=== PATIENT | female | born 1985 | race American Indian/Alaskan Native ===

== ENCOUNTER 2018-12-16 14:55 | Outpatient (CLI) | payer MEDICAID, OTHER ==
[2018-12-16 15:16] VITALS: BP 105/69
[2018-12-16] MEDS ORDERED: LACTATED RINGERS 500 ML IV ONE (15:51)
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
== END 2018-12-16 19:38 | disposition home or self-care (01) ==
LOC: TRG 14:55
PROVIDERS: ATTEND Obstetrics & Gynecology
DX: O47.03 False labor before 37 completed weeks of gestation, third trimester (principal); O9A.213 Injury, poisoning and certain other consequences of external causes complicating pregnancy, third trimester; Z3A.31 31 weeks gestation of pregnancy; X58.XXXA Exposure to other specified factors, initial encounter; Y93.89 Activity, other specified; Y92.89 Other specified places as the place of occurrence of the external cause; Y99.8 Other external cause status
CPT/HCPCS: 59025; 76815

== ENCOUNTER 2019-01-26 12:29 | Outpatient (CLI) | payer MEDICAID ==
[2019-01-26] MEDS ORDERED: LACTATED RINGERS 500 ML IV ONE (13:13)
[2019-01-26 13:27] VITALS: BP 112/70
[2019-01-26 13:40] LABS: Bilirubin,Urine NEG (Negative); Blood,Urine NEG (Negative); Calcium Oxalate Crystals,Urine FEW; Mucus,Urine 3+ /HPF
[2019-01-26 13:43] LABS: Color,Urine Yellow (Yellow)
== END 2019-01-26 15:18 | disposition home or self-care (01) ==
LOC: TRG 12:29
PROVIDERS: ATTEND Obstetrics & Gynecology
DX: O47.03 False labor before 37 completed weeks of gestation, third trimester (principal); Z3A.37 37 weeks gestation of pregnancy
CPT/HCPCS: 81001

== ENCOUNTER 2019-02-14 05:49 | Inpatient (IN) | payer MEDICAID ==
[2019-02-14] MEDS ORDERED: LACTATED RINGERS 1,000 ML ONE (05:59)
[2019-02-14] MEDS ORDERED: BRETHINE IVP PRN (06:10)
[2019-02-14] MEDS ORDERED: MINERAL OIL PO PRN (06:10)
[2019-02-14] MEDS ORDERED: BRETHINE SUB-Q PRN (06:10)
[2019-02-14] MEDS ORDERED: SUBLIMAZE IV PRN (06:10)
[2019-02-14] MEDS ORDERED: XYLOCAINE 2% INFILTRATI ONE (06:10)
[2019-02-14] MEDS ORDERED: AMPICILLIN/NS 2 GM/100 ML 2 GM/100 ML BAG IV ONE ×2 (06:10→06:15)
[2019-02-14] MEDS: LACTATED RINGERS 1,000 ML IV SCH ×2 (06:10→06:41)
[2019-02-14] MEDS ORDERED: PITOCin/NS 20 UNIT/1000ML DRIP 20 UNITS/1,000 ML BAG IV SCH ×2 (07:00→08:30)
[2019-02-14] MEDS ORDERED: PITOCin/NS 30 UNIT/500ML 30 UNITS/500 ML BAG IV SCH (07:00)
[2019-02-14 07:20] LABS: Hematocrit 31.1 % (30.3-42.9); Hemoglobin 10.8 gm/dl (10.1-14.3); Mean Corpuscular HGB Conc 35 % (30-34); Mean Corpuscular Volume 94 fl (79-97); Platelet Count 207 K/mm3 (140-440); Red Blood Count 3.32 M/mm3 (3.65-5.03); Red Cell Distribution Width 13.1 % (13.2-15.2)
--- NOTE | 2019-02-14 08:10 | History and Physical Report ---
History of Present Illness Date of examination: 02/14/19 Date of admission: 02/14/19 06:05 Chief complaint: contractions History of present illness: This is a 33yo EDC 02/16/19 at 39+5 weeks admitted to labor and delivery for active labor. She is a patient of [facility]. She has a hx of obesity and UTI treated in this . Past History Past Medical History: no pertinent history Past Surgical History: no surgical history CERTIFIED SUBSTANCE ABUSE COUNSELOR History: trichomonas Family/Genetic History: hypertension, cancer, other (depression) Social history: single. denies: smoking, alcohol abuse, prescription drug abuse - Obstetrical History Expected Date of Delivery: 02/16/19 Actual Gestation: 39 Week(s) 5 Day(s) : 2 Para: 1 Hx # Term Pregnancies: 1 Number of Pregnancies: 0 Spontaneous Abortions: 0 Induced : 0 Number of Living Children: 1 Medications and Allergies Allergies Allergy/AdvReac Type Severity Reaction Status Date / Time No Known Allergies Allergy Verified 01/26/19 13:13 Home Medications Medication Instructions Recorded Confirmed Last Taken Type Ondansetron [Zofran Odt] 4 mg PO TID #6 tab.rapdis 05/11/15 Unknown Rx Ferrous Sulfate [Feosol 325 MG tab] 325 mg PO BID #30 tablet 02/14/19 Unknown Rx Ibuprofen [Motrin] 600 mg PO Q8H PRN #30 tablet 02/14/19 Unknown Rx oxyCODONE /ACETAMINOPHEN [Percocet 1 tab PO Q6HR PRN #30 tablet 02/14/19 Unknown Rx 5/325] Active Meds: Active Medications Acetaminophen (Tylenol) 650 mg PO Q4H PRN PRN Reason: Pain MILD(1-3)/Fever >100.5/CHASE Acetaminophen/Hydrocodone Bitart ([place] 5/325) 2 each PO Q6H PRN PRN Reason: Pain, Moderate (4-6) Bisacodyl (Dulcolax) 10 mg OR BID PRN PRN Reason: Constipation Diphenhydramine HCl (Benadryl) 25 mg PO Q6H PRN PRN Reason: Itching Diphtheria/Tetanus/Acell Pertussis (Boostrix) 0.5 ml IM .ONCE ONE Stop: 02/15/19 07:59 Docusate Sodium (Colace) 100 mg PO BID ROBERTA Ephedrine Sulfate (Ephedrine Sulfate) 10 mg IV Q2M PRN PRN Reason: Hypotension Fentanyl (Sublimaze) 100 mcg IV Q2H PRN PRN Reason: Labor Pain Last Admin: 02/14/19 06:17 Dose: 100 mcg Documented by: Oxytocin/Sodium Chloride (Pitocin/Ns 20 Unit/1000ml Drip) 20 units in 1,000 mls @ 125 mls/hr IV DIRECT ROBERTA Oxytocin/Sodium Chloride (Pitocin/Ns 30 Unit/500ml) 30 units in 500 mls @ 1 mls/hr IV TITR ROBERTA; Protocol Lactated Ringer's (Lactated Ringers) 1,000 mls @ 125 mls/hr IV DIRECT ROBERTA Last Admin: 02/14/19 06:41 Dose: 125 mls/hr Documented by: Oxytocin/Sodium Chloride (Pitocin/Ns 20 Unit/1000ml Drip) 20 units in 1,000 mls @ 250 mls/hr IV DIRECT ROBERTA Ibuprofen (Ibuprofen) 600 mg PO Q6H ROBERTA Ketorolac Tromethamine (Toradol) 30 mg IV Q6H PRN PRN Reason: Pain, Moderate (4-6) Stop: 02/19/19 07:57 Magnesium Hydroxide (Milk Of Magnesia) 30 ml PO HS PRN PRN Reason: Constipation Measles/Mumps/Rubella Vaccine Live (M-M-R Ii Vaccine) 0.5 ml SUB-Q .ONCE ONE Stop: 02/15/19 07:59 Mineral Oil (Mineral Oil) 30 ml PO QHS PRN PRN Reason: Constipation Multi-Ingredient Ointment (Lansinoh) 1 applic TP PRN PRN PRN Reason: Sore Nipples Multivitamins/Iron/Calcium ( Vitamin) 1 each PO QDAY ROBERTA Ondansetron HCl (Zofran) 4 mg IV Q8H PRN PRN Reason: Nausea And Vomiting Oxycodone/Acetaminophen (Percocet 5/325) 1 tab PO Q6H PRN PRN Reason: Pain, Moderate (4-6) Promethazine HCl (Phenergan) 25 mg OR Q6H PRN PRN Reason: Nausea And Vomiting Promethazine HCl (Phenergan) 25 mg PO Q6H PRN PRN Reason: Nausea And Vomiting Sodium Chloride (Sodium Chloride Flush Syringe 10 Ml) 10 ml IV PRN NR Terbutaline Sulfate (Brethine) 0.25 mg SUB-Q ONCE PRN PRN Reason: Hyperstimulation/Hypertonicity Terbutaline Sulfate (Brethine) 0.25 mg IVP ONCE PRN PRN Reason: Hyperstimulation/Hypertonicity Witch Maira/Glycerin (Tucks Pad) 1 each TP PRN PRN PRN Reason: Hemorrhoid/cleansing/soothing Review of Systems All systems: negative - Vital Signs Vital signs: Vital Signs Pulse BP 90 140/93 02/14/19 06:05 02/14/19 06:05 Temp Pulse Resp BP Pulse Ox 85 115/64 02/14/19 07:49 02/14/19 07:49 - Physical Exam Breasts: Positive: normal Cardiovascular: Regular rate, Normal S1 Lungs: Positive: Clear to auscultation, Normal air movement Abdomen: Positive: normal appearance, soft, normal bowel sounds. Negative: distention, tenderness, guarding Genitourinary (Female): Positive: normal external genitalia, normal perenium Vulva: both: normal Vagina: Positive: normal moisture Uterus: Positive: normal size, normal contour Anus/Rectum: Positive: normal perianal skin Extremities: Positive: normal Deep Tendon Reflex Grade: Normal +2 - Obstetrical FHR: category 1 Cervical Dilatation: 8 Uterine Contraction Pattern: Regular Uterine Tone Measurement Phase: Contraction Uterine Contraction Intensity: Strong/Firm Results Result Diagrams: 02/14/19 07:08 Abnormal lab results 02/14/19 Range/Units 07:08 WBC 13.6 H (4.5-11.0) K/mm3 RBC 3.32 L (3.65-5.03) M/mm3 MCHC 35 H (30-34) % RDW 13.1 L (13.2-15.2) % All other labs normal. Assessment and Plan A/P IUP 39+5 weeks active labor expect vaginal delivery
--- NOTE | 2019-02-14 08:20 | Procedure Note ---
OB Delivery Note - Delivery Date of Delivery: 02/14/19 Surgeon: BEVERLY RUIZ Estimated blood loss: 300cc - Vaginal Delivery presentation: vertex Delivery position: OA Intrapartum events: precipitous labor- <3hr Delivery induction: none Delivery monitor: external FHT, external uterine Route of delivery: Delivery placenta: spontaneous Delivery cord: 3 umbilical vessels Episiotomy: none Delivery laceration: none Anesthesia: none Delivery comments: Patient noted to be C/C/+2 and commenced to pushing a viable male infant at 746a. The baby placed on mom chest and cord was clamped and cut. the placneta delivered intact with three vessel cord at . Weight of the baby 8 pounds 3 oz. no laceration. Precipitous delivery attended by Teenage Babysitter MYOB. Diaz 8 and 9. Patient and baby recovering well. - Infant A at 1 minute: 8 at 5 minutes: 9 Infant Gender: Male (8 pounds 3 oz)
[2019-02-14] MEDS ORDERED: TORADOL IV PRN (08:30)
[2019-02-14] MEDS ORDERED: PHENERGAN PR PRN (08:30)
[2019-02-14] MEDS ORDERED: BENADRYL PO PRN (08:30)
[2019-02-14] MEDS ORDERED: NORCO 5/325 PO PRN (08:30)
[2019-02-14] MEDS ORDERED: TUCKS PAD TP PRN (08:30)
[2019-02-14] MEDS ORDERED: PHENERGAN PO PRN (08:30)
[2019-02-14] MEDS ORDERED: TYLENOL PO PRN (08:30)
[2019-02-14] MEDS ORDERED: LANSINOH TP PRN (08:30)
[2019-02-14] MEDS ORDERED: ZOFRAN IV PRN (08:30)
[2019-02-14] MEDS ORDERED: PERCOCET 5/325 PO PRN (08:30)
[2019-02-14] MEDS ORDERED: SODIUM CHLORIDE FLUSH SYRINGE 10 ML IV PRN (09:00)
[2019-02-14] MEDS ORDERED: DULCOLAX PR PRN (10:00)
[2019-02-14] MEDS: COLACE PO SCH ×2 (12:50→21:51)
[2019-02-14] MEDS: PRENATAL VITAMIN PO SCH (12:50)
[2019-02-14] MEDS: IBUPROFEN PO SCH ×2 (12:51→23:34)
[2019-02-14 21:47] LABS: Hematocrit 29.2 % (30.3-42.9); Hemoglobin 9.6 gm/dl (10.1-14.3)
[2019-02-14] MEDS ORDERED: MILK OF MAGNESIA PO PRN (22:00)
[2019-02-15] MEDS: IBUPROFEN PO SCH ×4 (05:50→23:27)
[2019-02-15] MEDS ORDERED: BOOSTRIX IM ONE (06:00)
--- NOTE | 2019-02-15 08:35 | Progress Note ---
Assessment and Plan - Patient Problems (1) Active labor at term Current Visit: Yes Status: Acute Plan to address problem: patient doing well discharge home tomorrow if remains stable Subjective - Subjective Date of service: 02/15/19 Interval history: Patient without complaints. Attempting . Pain well controlled. Tolerating regular diet. Infant under observation for GBS Patient reports: appetite normal, voiding normally, pain well controlled [place]: doing well Objective - Vital Signs Latest vital signs: Vital Signs Temp Pulse Resp BP Pulse Ox 02/15/19 07:40 97.6 F 69 20 109/65 100 02/15/19 05:50 20 02/15/19 01:12 97.7 F 70 18 100/47 98 02/14/19 23:34 20 02/14/19 20:30 98.0 F 66 20 105/60 98 02/14/19 17:11 98.0 F 69 16 109/67 100 02/14/19 13:49 18 02/14/19 12:51 20 02/14/19 12:49 20 02/14/19 12:35 98.0 F 72 18 112/66 99 02/14/19 10:01 97.0 F L 69 18 104/64 99 02/14/19 08:49 65 99/58 Intake and Output 02/14/19 02/15/19 02/15/19 22:59 06:59 14:59 Intake Total 240 360 Output Total 700 Balance -460 360 Intake: Oral 240 Intake, Free Water 360 Output: Urine 700 Void 700 Other: Total, Intake Amount 240 Total, Output Amount 700 Voiding Method Toilet # Voids Void 1 2 - Exam Abdomen: Present: normal appearance Uterus: Present: normal - Labs Labs: Abnormal lab results 02/14/19 Range/Units 20:44 Hgb 9.6 L (10.1-14.3) gm/dl Hct 29.2 L (30.3-42.9) %
[2019-02-15] MEDS ORDERED: M-M-R II VACCINE SUB-Q ONE (11:00)
[2019-02-15] MEDS: COLACE PO SCH ×2 (11:15→23:26)
[2019-02-15] MEDS: PRENATAL VITAMIN PO SCH (11:15)
[2019-02-16] MEDS: IBUPROFEN PO SCH ×2 (05:45→12:05)
--- NOTE | 2019-02-16 08:20 | Progress Note ---
Assessment and Plan A: 1. PPD2 s/p 2. Iron-deficiency anemia 3. VSS P: 1. Discharge to home today 2. Iron supplementation Return to office in 4 weeks for exam and control Subjective - Subjective Date of service: 02/16/19 Principal diagnosis: PPD2 s/p Interval history: Pt is PPD s/p of viable . She is breast feeding without difficulty and feeling well. Patient reports: appetite normal, voiding normally, pain well controlled, ambulating normally [place]: doing well, nursing well Objective - Vital Signs Latest vital signs: Vital Signs Temp Pulse Resp BP BP Pulse Ox 02/16/19 05:45 20 02/16/19 00:21 97.6 F 65 16 102/63 98 02/15/19 23:27 18 02/15/19 16:56 20 02/15/19 16:06 98.1 F 90 20 115/61 02/15/19 15:20 20 Intake and Output 02/15/19 02/16/19 02/16/19 23:59 07:59 15:59 Intake Total 440 Balance 440 Intake: Oral 440 Other: Total, Intake Amount 120 # Voids Void 1 - Exam Cardiovascular: Present: Regular rate, Normal S1, Normal S2, No murmurs Lungs: Present: Clear to auscultation, Normal air movement Abdomen: Present: normal appearance, soft Uterus: Present: normal, firm, fundal height at umbilicus Extremities: Present: normal
--- NOTE | 2019-02-16 08:22 | Discharge Summary ---
Providers - Providers Date of Admission: 02/14/19 06:05 Date of discharge: 02/16/19 Attending physician: CANDIDO CANELA Primary care physician: CANDIDO CANELA Hospitalization Reason for admission: active labor, IUP at term Delivery: Episiotomy: none Laceration: none Other procedures: none complications: none Discharge diagnosis: IUP at term delivered (precipitous delivery) Condition at discharge: Good Disposition: DC-01 TO HOME OR SELFCARE Plan - Discharge Medications Prescriptions: Ferrous Sulfate [Feosol 325 MG tab] 325 mg PO BID #30 tablet Ibuprofen [Motrin] 600 mg PO Q8H PRN #30 tablet PRN Reason: Pain oxyCODONE /ACETAMINOPHEN [Percocet 5/325] 1 tab PO Q6HR PRN #30 tablet PRN Reason: Pain - Provider Discharge Summary Activity: routine, no sex for 6 weeks, no heavy lifting 4 weeks, no strenuous exercise Diet: routine Instructions: routine Additional instructions: [] Smoking cessation referral if applicable(refer to patient education folder for contact #) [] Refer to [facility] Booklet Call your doctor immediately for: * Fever > 100.5 * Heavy vaginal bleeding ( >1 pad per hour) * Severe persistent headache * Shortness of breath * Reddened, hot, painful area to leg or breast * Drainage or odor from incision. * Keep incision clean and dry at all times and follow doctor's instructions regarding bathing/showering - Follow up plan Follow up: CANDIDO CANELA MD [Primary Care Provider] - 03/16/19
[2019-02-16] MEDS: PRENATAL VITAMIN PO SCH (12:01)
[2019-02-16] MEDS: COLACE PO SCH (12:01)
[2019-02-16 17:50] VITALS: BP 113/62
== END 2019-02-16 18:00 | disposition home or self-care (01) | DRG 775 ==
LOC: TRG 05:49 → LD 05:50 → TRG 06:04 → LD 06:05 → OB 10:03
PROVIDERS: ADMIT Obstetrics & Gynecology; ATTEND Obstetrics & Gynecology
PROC: 10E0XZZ Delivery of Products of Conception, External Approach (ICD-10-PCS; principal; 2019-02-14)
DX: O62.3 Precipitate labor (principal); O99.214 Obesity complicating childbirth; E66.9 Obesity, unspecified; O99.02 Anemia complicating childbirth; D50.9 Iron deficiency anemia, unspecified; Z3A.39 39 weeks gestation of pregnancy; Z37.0 Single live birth; Z68.41 Body mass index [BMI] 40.0-44.9, adult
CPT/HCPCS: 36415; 85014; 85018; 85027; 86592; 86850; 86900; 86901; G0378; A6250; J0290; J2590; J3010; J7120